=== PATIENT | female | born 1950 | race Caucasian/White ===

== ENCOUNTER 2022-07-21 14:00 | Outpatient (RCR) | payer MEDICARE, SELFPAY | END 2022-07-21 14:05 | disposition home or self-care (01) | LOC: OT 14:00 | DX: M25.511 Pain in right shoulder (principal); M75.111 Incomplete rotator cuff tear or rupture of right shoulder, not specified as traumatic | CPT/HCPCS: 97010; 97014; 97110; 97140; 97164; 97166; G0283 ==